=== PATIENT | female | born 1990 | race Caucasian/White ===

== ENCOUNTER 2018-05-15 10:37 | Day surgery (SDC) | payer MEDICAID, OTHER ==
[2018-05-15] MEDS ORDERED: Calcium Gluc 4.6 MEQ/10 ML (100 MG/ML) SLOW IVP PRN (11:18)
[2018-05-15 11:26] VITALS: BMI 27.3
[2018-05-15 12:19] LABS: #Eosinphils 0.1 thou/uL (0.0-0.7); #Monocytes 0.2 thou/uL (0.11-0.59); #Neutrophils 9.2 thou/uL (1.40-6.50); %Basophils 0.2 % (0.0-1.0); %Eosinophils 0.8 % (0.0-10.0); %Lymphocytes 9.1 % (21.0-51.0); %Monocytes 1.7 % (0.0-10.0); %Neutrophils 88.2 % (42.0-75.0); Hemoglobin 13.1 g/dL (12.0-16.0); Mean Corpuscular HGB CONC 33.4 g/dL (32.0-36.0); Mean Corpuscular Hemoglobin 32.3 pg (27.0-31.0); Mean Corpuscular Volume 96.8 fL (78.0-98.0); Mean Platelet Volume 8.5 fL (7.4-10.4); Platelet Count 200 thou/uL (130-400); RBC Distribution Width 11.8 % (11.5-14.5); Red Blood Cell (RBC) Count 4.05 mill/uL (4.20-5.40); White Blood Cell (WBC) Count 10.4 thou/uL (4.8-10.8)
[2018-05-15 12:47] LABS: Uric Acid 3.3 mg/dL (2.6-6.0)
[2018-05-15 13:07] LABS: Creatinine, Urine 40.11 mg/dL (47-110); Protein, Urine Random Quant Less than 10 mg/dL (1-14)
== END 2018-05-15 14:15 | disposition home health service (06) ==
LOC: L&D/OP 10:37
PROVIDERS: ATTEND Obstetrics & Gynecology
DX: O16.9 Unspecified maternal hypertension, unspecified trimester (principal); Z79.899 Other long term (current) drug therapy; Z88.5 Allergy status to narcotic agent
CPT/HCPCS: 36415; 82570; 83615; 84156; 84450; 84460; 84550; 85025; 99283

== ENCOUNTER 2018-06-05 20:06 | Inpatient (IN) | payer OTHER ==
[2018-06-05] MEDS ORDERED: Zolpidem Tartrate 5 MG TAB PO PRN (21:06)
[2018-06-05] MEDS ORDERED: Ondansetron HCl/PF 4 MG/2 ML Vial IVP PRN (21:06)
[2018-06-05] MEDS ORDERED: Promethazine HCl 25 MG/ML VIAL IM PRN (21:06)
[2018-06-05] MEDS ORDERED: Acetaminophen 500 MG TAB PO PRN (21:06)
[2018-06-05] MEDS ORDERED: Misoprostol 200 MCG TAB RC PRN (21:15)
[2018-06-05] MEDS ORDERED: Ibuprofen 800 MG TAB PO PRN (21:15)
[2018-06-05] MEDS ORDERED: Lidocaine 1% (PF) 30 ML VIAL SC PRN (21:15)
[2018-06-05] MEDS ORDERED: NS / Oxytocin 40 units/1000ml 1,000 ML IV SCH (21:15)
[2018-06-05] MEDS ORDERED: NS w/ Oxytocin 10 units 500 ML IV SCH ×2 (21:15)
[2018-06-05] MEDS ORDERED: Carboprost 250 MCG/ML AMP IM PRN (21:15)
[2018-06-05] MEDS ORDERED: Methylergonovine 0.2 MG/ML VIAL IM PRN (21:15)
[2018-06-05] MEDS: Lactated Ringer's 1,000 ML IV SCH (21:47)
[2018-06-05 21:51] LABS: Hemoglobin 13.5 g/dL (12.0-16.0); Mean Corpuscular HGB CONC 34.3 g/dL (32.0-36.0); Mean Corpuscular Hemoglobin 32.7 pg (27.0-31.0); Mean Corpuscular Volume 95.4 fL (78.0-98.0); Mean Platelet Volume 8.7 fL (7.4-10.4); Platelet Count 181 thou/uL (130-400); RBC Distribution Width 11.7 % (11.5-14.5); Red Blood Cell (RBC) Count 4.14 mill/uL (4.20-5.40)
[2018-06-05 22:18] VITALS: BMI 27.1
[2018-06-05 22:34] LABS: Syphilis Antibody Nonreactive (Nonreactive); Syphilis Antibody Index 0.02 S/CO (<1.00 Non-Reactive)
[2018-06-06 00:25] LABS: HBSAg Index 0.17 S/CO (0-0.99); Hep B Surf Ag Non-Reactive S/CO (NonReactive)
[2018-06-06] MEDS: Lactated Ringer's 1,000 ML IV SCH ×2 (04:30→07:38)
[2018-06-06] MEDS: Butorphanol Tartrate 1 MG/ML VIAL SLOW IVP PRN ×2 (05:07→06:06)
[2018-06-06] MEDS ORDERED: Fentanyl 4 mcg/Bup 0.1% Cadd 100 ML ONE (06:33)
[2018-06-06] MEDS: Fentanyl 4 mcg/Bup 0.1% Cadd 100 ML in Premix Bag 1 BAG EPIDURAL SCH ×2 (07:05→14:22)
[2018-06-06] MEDS ORDERED: Acetaminophen 325 MG TAB PO PRN ×2 (07:13→15:05)
[2018-06-06] MEDS ORDERED: Lactated Ringer's 500 ML IV PRN (07:13)
[2018-06-06] MEDS ORDERED: diphenhydrAMINE 50 MG/ML VIAL IVP PRN (07:13)
[2018-06-06] MEDS ORDERED: Promethazine HCl 25 MG/ML VIAL IM PRN (07:13)
[2018-06-06] MEDS ORDERED: Ondansetron HCl/PF 4 MG/2 ML Vial IVP PRN ×2 (07:13→15:03)
[2018-06-06] MEDS ORDERED: ePHEDrine/0.9% NaCl/PF SYRINGE 50 mg/10 ml SLOW IVP PRN (07:13)
[2018-06-06] MEDS ORDERED: Eucerin (Mineral Oil/Petrolatum,White) 30 gm Jar TOP PRN (07:13)
[2018-06-06] MEDS ORDERED: Naloxone HCl 0.4 mg/ml Vial IVP PRN ×2 (07:13)
[2018-06-06] MEDS ORDERED: Communication Order-Pharmacy FS SCH (07:15)
[2018-06-06] MEDS ORDERED: fentaNYL Citrate/PF 400 MCG, Bupivacaine 0.5% 20 ML in Sodium Chloride 0.9% 72 ML EPIDURAL SCH (07:15)
[2018-06-06] MEDS ORDERED: Zolpidem Tartrate 5 MG TAB PO PRN (15:03)
[2018-06-06] MEDS ORDERED: Preparation H Ointment 28 GM TUBE PR PRN (15:03)
[2018-06-06] MEDS ORDERED: Adacel (T-DAP) 0.5 ML VIAL IM ONE (15:03)
[2018-06-06] MEDS ORDERED: Milk Of Magnesia 30 ML UDCUP PO PRN (15:03)
[2018-06-06] MEDS ORDERED: Misoprostol 200 MCG TAB VAG PRN (15:03)
[2018-06-06] MEDS ORDERED: Lanolin Ointment 7 GM TUBE TOP PRN (15:03)
[2018-06-06] MEDS ORDERED: Bisacodyl 10 MG SUPP PR PRN (15:03)
[2018-06-06] MEDS ORDERED: diphenhydrAMINE 25 MG CAP PO PRN (15:03)
[2018-06-06] MEDS ORDERED: Benzocaine/Menthol 20-0.5% 60 ML CAN TOP PRN (15:03)
[2018-06-06] MEDS ORDERED: NS / Oxytocin 40 units/1000ml 1,000 ML IV SCH (15:15)
[2018-06-06] MEDS: Ibuprofen 800 MG TAB PO SCH (17:14)
[2018-06-06] MEDS ORDERED: hydrALAZINE 20 MG/ML VIAL SLOW IVP SCH ×2 (17:30→18:15)
[2018-06-06] MEDS: Docusate Calcium (SURFAK) 240 MG CAP PO SCH (20:41)
[2018-06-06] MEDS: Labetalol 100 MG TAB PO SCH (20:41)
[2018-06-06] MEDS ORDERED: Bupivacaine 0.25% HCL 30 ML VIAL ONE (21:00)
[2018-06-06] MEDS ORDERED: ePHEDrine/0.9% NaCl/PF SYRINGE 50 mg/10 ml ONE (21:00)
[2018-06-06] MEDS: Ferrous Sulfate 325 MG TAB PO SCH (22:23)
[2018-06-07] MEDS: Ibuprofen 800 MG TAB PO SCH ×3 (04:25→21:11)
[2018-06-07 06:16] LABS: Hemoglobin 11.3 g/dL (12.0-16.0); Mean Corpuscular HGB CONC 33.3 g/dL (32.0-36.0); Mean Corpuscular Hemoglobin 32.7 pg (27.0-31.0); Mean Corpuscular Volume 98.5 fL (78.0-98.0); Mean Platelet Volume 9.4 fL (7.4-10.4); Platelet Count 141 thou/uL (130-400); RBC Distribution Width 11.9 % (11.5-14.5); Red Blood Cell (RBC) Count 3.46 mill/uL (4.20-5.40)
[2018-06-07] MEDS: Labetalol 100 MG TAB PO SCH ×2 (08:38→21:11)
[2018-06-07] MEDS: Docusate Calcium (SURFAK) 240 MG CAP PO SCH ×2 (08:38→21:11)
[2018-06-07] MEDS: Prenatal Vitamin 1 TAB PO SCH (08:39)
[2018-06-07] MEDS: Ferrous Sulfate 325 MG TAB PO SCH ×2 (09:19→17:07)
[2018-06-08] MEDS: Ibuprofen 800 MG TAB PO SCH ×2 (05:15→13:33)
[2018-06-08] MEDS: Ferrous Sulfate 325 MG TAB PO SCH ×2 (07:32→15:25)
[2018-06-08] MEDS: Labetalol 100 MG TAB PO SCH (09:00)
[2018-06-08] MEDS: Docusate Calcium (SURFAK) 240 MG CAP PO SCH (09:00)
[2018-06-08] MEDS: Prenatal Vitamin 1 TAB PO SCH (09:00)
[2018-06-08 12:31] VITALS: BP 149/95; TEMP 98.3
== END 2018-06-08 17:30 | disposition home or self-care (01) | DRG 807 ==
LOC: L&D 20:06 → 3SW 06-06 19:32
PROVIDERS: ADMIT Obstetrics & Gynecology; ATTEND Obstetrics & Gynecology
PROC: 10D07Z6 Extraction of Products of Conception, Vacuum, Via Natural or Artificial Opening (ICD-10-PCS; principal; 2018-06-05)
PROC: 3E0P7VZ Introduction of Hormone into Female Reproductive, Via Natural or Artificial Opening (ICD-10-PCS; 2018-06-05)
PROC: 4A0HXCZ Measurement of Products of Conception, Cardiac Rate, External Approach (ICD-10-PCS; 2018-06-05)
PROC: 3E0234Z Introduction of Serum, Toxoid and Vaccine into Muscle, Percutaneous Approach (ICD-10-PCS; 2018-06-08)
DX: O13.4 Gestational [pregnancy-induced] hypertension without significant proteinuria, complicating childbirth (principal); Z37.0 Single live birth; O99.344 Other mental disorders complicating childbirth; F41.8 Other specified anxiety disorders; O36.5930 Maternal care for other known or suspected poor fetal growth, third trimester, not applicable or unspecified; O9A.12 Malignant neoplasm complicating childbirth; C53.9 Malignant neoplasm of cervix uteri, unspecified; O76 Abnormality in fetal heart rate and rhythm complicating labor and delivery; Z3A.37 37 weeks gestation of pregnancy; Z23 Encounter for immunization
CPT/HCPCS: 36415; 36416; 51702; 85027; 86780; 86850; 86900; 86901; 87340; 88307; 90471; 90686; G0008; J0360; J0595; J2001; J2405; S0020